=== PATIENT | male | born 2000 | race Hispanic/Latino ===

== ENCOUNTER 2023-12-14 13:32 | Emergency (ER) | payer OTHER ==
[~2023-12-14] VITALS: Ht 175.3 cm; Wt 70.8 kg
[2023-12-14] MEDS: KETOROLAC 15MG/ML VIAL (15MG/ML) IM ONE (13:53)
[2023-12-14 14:30] VITALS: BP 118/79; PULSE 71; RESP 16; O2SAT 98
== END 2023-12-14 14:35 | disposition home or self-care (01) ==
LOC: EDH 13:32
DX: M25.531 Pain in right wrist (principal); V89.2XXA Person injured in unspecified motor-vehicle accident, traffic, initial encounter; Y93.I9 Activity, other involving external motion; Y92.488 Other paved roadways as the place of occurrence of the external cause; Y99.8 Other external cause status
CPT/HCPCS: 99283; 73110; 96372; J1885